=== PATIENT | male | born 1960 | race Caucasian/White ===

== ENCOUNTER 2018-01-08 10:51 | Emergency (ER) | payer BC ==
[2018-01-08 11:43] LABS: BASO % 0.7 % (0.0-1.0); EOS # 0.2 10^3/uL (0.0-0.50); EOS % 3.2 % (0.0-3.0); HEMATOCRIT 40.8 % (42.0-52.0); IMMATURE GRANULOCYTE % 0.2 % (0-3.0); LYMPH # 2.1 10^3/uL (1.5-4.5); LYMPH % 38.5 % (24.0-44.0); MEAN CORPUSCULAR HEMOGLOBIN 30.2 pg (27.0-33.0); MEAN CORPUSCULAR HGB CONC 34.3 g/dl (32.0-36.5); MEAN CORPUSCULAR VOLUME 87.9 fl (80.0-96.0); MONO # 0.4 10^3/uL (0.0-0.8); MONO % 8.2 % (0.0-5.0); NEUTROPHILS # 2.6 10^3/uL (1.8-7.7); NEUTROPHILS % 49.2 % (36.0-66.0); PLATELET COUNT, AUTOMATED 244 10^3/uL (150-450); RED BLOOD COUNT 4.64 10^6/uL (4.30-6.10); RED CELL DISTRIBUTION WIDTH 12.3 % (11.5-14.5); WHITE BLOOD COUNT 5.4 10^3/uL (4.0-10.0)
[2018-01-08] MEDS: ASPIRIN 81 MG CHEW TABLET PO (11:49)
[2018-01-08 11:57] LABS: ALBUMIN 4.2 GM/DL (3.2-5.2); ALKALINE PHOSPHATASE 64 U/L (45-117); ALT/SGPT 26 U/L (12-78); ANION GAP 4 MEQ/L (8-16); AST/SGOT 24 U/L (7-37); BILIRUBIN,DIRECT < 0.1 MG/DL (0.0-0.2); BILIRUBIN,TOTAL 0.4 MG/DL (0.2-1.0); BLOOD UREA NITROGEN 14 MG/DL (7-18); CALCIUM LEVEL 9.2 MG/DL (8.5-10.1); CARBON DIOXIDE LEVEL 30 MEQ/L (21-32); CHLORIDE LEVEL 106 MEQ/L (98-107); CK-MB VALUE MASS 3.1 NG/ML (<3.6); CPK CREATINE PHOSPHOKINASE 155 U/L (39-308); CREATININE FOR GFR 1.03 MG/DL (0.70-1.30); GLOMERULAR FILTRATION RATE > 60.0 (>56); GLUCOSE, FASTING 89 MG/DL (70-100); LIPASE 159 U/L (73-393); POTASSIUM SERUM 3.9 MEQ/L (3.5-5.1); SODIUM LEVEL 140 MEQ/L (136-145); TOTAL PROTEIN 7.7 GM/DL (6.4-8.2); TROPONIN I < 0.02 NG/ML (< 0.10)
[2018-01-08] MEDS: KETOROLAC 30 MG/ML VIAL (J1885) IV (12:32)
[2018-01-08 13:54] LABS: CPK CREATINE PHOSPHOKINASE 137 U/L (39-308); TROPONIN I < 0.02 NG/ML (< 0.10)
[2018-01-08 13:55] LABS: CK-MB VALUE MASS 2.8 NG/ML (<3.6); MB/CK RELATIVE INDEX 2.04 (< OR =4)
== END 2018-01-08 14:46 | disposition home or self-care (01) ==
LOC: M ED 10:51
DX: R07.89 Other chest pain (principal); I10 Essential (primary) hypertension; E78.5 Hyperlipidemia, unspecified; F43.10 Post-traumatic stress disorder, unspecified; Z79.899 Other long term (current) drug therapy
CPT/HCPCS: J1885

== ENCOUNTER 2018-07-12 11:55 | Emergency (ER) | payer OTHER, BC | END 2018-07-12 14:59 | disposition home or self-care (01) | LOC: M ED 11:55 | DX: S05.02XA Injury of conjunctiva and corneal abrasion without foreign body, left eye, initial encounter (principal); W22.8XXA Striking against or struck by other objects, initial encounter; Y92.89 Other specified places as the place of occurrence of the external cause; I10 Essential (primary) hypertension; E78.00 Pure hypercholesterolemia, unspecified; K21.9 Gastro-esophageal reflux disease without esophagitis; G47.30 Sleep apnea, unspecified; F33.9 Major depressive disorder, recurrent, unspecified; Z79.899 Other long term (current) drug therapy | CPT/HCPCS: 99283 ==

== ENCOUNTER 2019-01-20 18:52 | Emergency (ER) | payer BC, OTHER ==
[~2019-01-20] VITALS: Ht 175.3 cm; Wt 82.7 kg
[~2019-01-20 18:52] MED LIST: B121000T PO; BUPR150T3; CALC-190 PO; CINN500C9 PO; CLAR10CA3 PO; D3400CHW PO; DONE5TAB64; FLAX10008 PO; FLOM0.4C39 PO; FLUTISP; GABA-845 PO; GLUC1CAP10 PO; MAGN400C2 PO; METO50TA7 PO; MULT200T7 PO; OMEP20CA3 PO; ROSU40TA3 PO; TEAR1SOL3 OU; TRAM50TA2 PO; TYLE325T5 PO
[2019-01-20] MEDS ORDERED: diazePAM 10 MG TAB PO ONE (20:15)
[2019-01-20] MEDS ORDERED: KETOROLAC 60 MG/2 ML VIAL (J1885) IM ONE (20:15)
[2019-01-20 21:50] VITALS: BP 128/67
== END 2019-01-20 22:02 | disposition home or self-care (01) ==
LOC: M ED 18:52
DX: M54.6 Pain in thoracic spine (principal); I10 Essential (primary) hypertension; I25.10 Atherosclerotic heart disease of native coronary artery without angina pectoris; Z79.899 Other long term (current) drug therapy; Z87.891 Personal history of nicotine dependence
CPT/HCPCS: 96372; 99283; J1885

== ENCOUNTER 2019-06-01 06:41 | Day surgery (SDC) | payer OTHER ==
[~2019-06-01] VITALS: Ht 175.3 cm; Wt 78.8 kg
[~2019-06-01 06:41] MED LIST changes: +ARTIDRO2 OU; +DONE10TA90 PO; +NON-325T5 PO; -OMEP20CA3 PO; +OMEP20CA4 PO; -ROSU40TA3 PO; +ROSU40TA4 PO
[2019-06-01] MEDS ORDERED: fentaNYL 100 MCG/2 ML INJECTION (J3010) As Ordered ONE (07:02)
[2019-06-01] MEDS ORDERED: LIDOCAINE 2% INJ 100 MG/5 ML SDV (FOR ANES.) As Ordered ONE (07:02)
[2019-06-01] MEDS ORDERED: PROPOFOL 500 MG/50 ML VIAL As Ordered ONE (07:02)
[2019-06-01] MEDS: NS 1,000 ML IV ONE (07:15)
[2019-06-01] MEDS ORDERED: SUCCINYLCHOLINE 100 MG/5 ML SYRINGE (J0330) As Ordered ONE (07:56)
--- NOTE | 2019-06-01 08:13 | ROOR ---
Patient Name: Amadeo Colunga Procedure Date: 06/01/2019 7:34 AM Date of : 1960 Age: 58 Room: [facility] Gender: Male Note Status: Finalized Procedure: Upper Endoscopy + Biopsies Indications: Heartburn, Exclusion of Bush's esophagus Providers: Ranjit Torres MD Referring MD: Ishan Morrow Md Requesting Provider: Medicines: Monitored Anesthesia Care Complications: Laryngospasm, treated with administration of oxygen, reversal agent administered Procedure: Pre-Anesthesia Assessment: - The heart rate, respiratory rate, oxygen saturations, blood pressure, adequacy of pulmonary ventilation, and response to care were monitored throughout the procedure. The Endoscope was introduced through the mouth, and advanced to the second part of duodenum. The upper GI endoscopy was accomplished without difficulty. The patient tolerated the procedure well. Findings: The Z-line was regular and was found 35 cm from the incisors. Multiple biopsies were obtained with cold forceps for evaluation to rule out Bush's Esophagus randomly at the gastroesophageal junction. A small hiatal hernia was present. No other significant abnormalities were identified in a careful examination of the stomach. The exam of the duodenum was otherwise normal. Impression: - Z-line regular, 35 cm from the incisors. - Small hiatal hernia. - Multiple biopsies were obtained at the gastroesophageal junction. - The examination was otherwise normal. Recommendation: - Patient has a contact number available for emergencies. The signs and symptoms of potential delayed complications were discussed with the patient. Return to normal activities tomorrow. Written discharge instructions were provided to the patient. - High fiber diet. - Discharge patient to home. - Continue present medications. - Await pathology results. - Telephone GI clinic for pathology results in 1 week. - Return to referring physician. - Return to referring physician. - The findings and recommendations were discussed with the patient's family. Ranjit Torres MD Ranjit Torres MD 06/01/2019 8:13:01 AM Electronically signed by Ranjit Torres MD Number of Addenda: 0 Note Initiated On: 06/01/2019 7:34 AM Estimated Blood Loss: Estimated blood loss: none. Estimated blood loss: none. Estimated blood loss: none.
--- NOTE | 2019-06-01 08:16 | ROOR ---
Patient Name: Amadeo Colunga Procedure Date: 06/01/2019 7:35 AM Date of : 1960 Age: 58 Room: [facility] Gender: Male Note Status: Finalized Procedure: Total Colonoscopy to Cecum Indications: Screening for colorectal malignant neoplasm Providers: Ranjit Torres MD Referring MD: Ishan Morrow Md Requesting Provider: Medicines: Monitored Anesthesia Care Complications: No immediate complications. Procedure: Pre-Anesthesia Assessment: - The heart rate, respiratory rate, oxygen saturations, blood pressure, adequacy of pulmonary ventilation, and response to care were monitored throughout the procedure. The Colonoscope was introduced through the anus and advanced to the cecum, identified by appendiceal orifice and ileocecal valve. The colonoscopy was performed without difficulty. The patient tolerated the procedure well. The quality of the bowel preparation was excellent. Findings: The perianal and digital rectal examinations were normal. Non-bleeding internal hemorrhoids were found during retroflexion. The hemorrhoids were small and Grade I (internal hemorrhoids that do not prolapse). No other significant abnormalities were identified in a careful examination of the remainder of the colon. The exam was otherwise without abnormality on direct and retroflexion views. Impression: - Non-bleeding internal hemorrhoids. - The examination was otherwise normal on direct and retroflexion views. - No specimens collected. - The exam was otherwise normal to the cecum. Recommendation: - Patient has a contact number available for emergencies. The signs and symptoms of potential delayed complications were discussed with the patient. Return to normal activities tomorrow. Written discharge instructions were provided to the patient. - High fiber diet. - Discharge patient to home. - Continue present medications. - Await pathology results. - Telephone GI clinic for pathology results in 1 week. - Repeat colonoscopy in 10 years for screening purposes. - Return to referring physician. - The findings and recommendations were discussed with the patient's family. Ranjit Torres MD Ranjit Torres MD 06/01/2019 8:15:29 AM Electronically signed by Ranjit Torres MD Number of Addenda: 0 Note Initiated On: 06/01/2019 7:35 AM Estimated Blood Loss: Estimated blood loss: none.
[2019-06-01 08:35] VITALS: BP 129/89
== END 2019-06-01 08:44 | disposition home or self-care (01) ==
LOC: M OPP 06:41
PROVIDERS: ATTEND Internal Medicine Gastroenterology
DX: Z12.11 Encounter for screening for malignant neoplasm of colon (principal); K64.0 First degree hemorrhoids; K44.9 Diaphragmatic hernia without obstruction or gangrene; R12 Heartburn; Z79.899 Other long term (current) drug therapy
CPT/HCPCS: 43239; 45378; 88305; J0330; J3010